=== PATIENT | male | born 1945 | race Caucasian/White ===

== ENCOUNTER 2023-03-11 18:18 | Outpatient (RCR) | payer MEDICARE, SELFPAY | END 2023-03-12 07:35 | disposition home or self-care (01) | LOC: ROT 18:18 | PROVIDERS: ATTENDING PHYSICIAN Physician Assistant Medical | DX: I69.898 Other sequelae of other cerebrovascular disease (principal); R26.89 Other abnormalities of gait and mobility | CPT/HCPCS: 97110; 97112; 97530 ==

== ENCOUNTER → 2023-05-21 | Outpatient (REF) | payer MEDICARE, SELFPAY | LOC: DHSLP | PROVIDERS: ATTENDING PHYSICIAN Internal Medicine; FAMILY PHYSICIAN Family Medicine | DX: G47.30 Sleep apnea, unspecified (principal); R06.83 Snoring | CPT/HCPCS: 95800 ==